=== PATIENT | female | born 1985 | race Caucasian/White ===

== ENCOUNTER 2018-08-15 06:34 | Emergency (ER) | payer MEDICAID ==
[2018-08-15 06:43] VITALS: BP 121/72
[2018-08-15] MEDS ORDERED: predniSONE 20 MG Tab PO ONE ×2 (07:20→07:32)
--- NOTE | 2018-08-15 07:20 | EDM.PDOC ---
ED HPI GENERAL MEDICAL PROBLEM - General Chief Complaint: Allergic Reaction Stated Complaint: ALLERGIC RX TO HAIR DYE Time Seen by Provider: 08/15/18 07:13 Source of Information: Reports: Patient History Limitations: Reports: No Limitations - History of Present Illness INITIAL COMMENTS - FREE TEXT/NARRATIVE: 33-year-old female presents to the ED for evaluation today due to development of a severe contact dermatitis involving her scalp and facial tissues and nape of neck due to development of allergic response to hair dye. She used a hair dye on Thursday, August 13 and within 24 hours started develop severe itching of the scalp which is progressed into significant swelling of the right david-face particularly with closure of the right eye due to soft tissue swelling of the eyelids. She has been using Benadryl 50 mg every 4-6 hours when necessary but his foot is this the itch and the swelling have progressed. She reports she thinks she had a similar type reaction many years ago. She feels no shortness of breath no problems with breathing or swallowing. Rash is confined to the area that was exposed to the hair dye. She does have some bruising and blistering of the scalp. It is oozing serous material due to development of some vesicles. Onset: Gradual Onset Date: 08/14/18 Duration: Day(s):, Getting Worse Location: Reports: Head, Face, Neck (Nape of neck.) Quality: Reports: Burning, Sharp, Stabbing, Other Severity: Severe (Severe pruritus dryness) Improves with: Reports: Medication (Benadryl helps a little bit.) Worsens with: Reports: None Context: Reports: Other (Chemical dermatitis secondary to hair dye.). Denies: Activity, Exercise, Lifting, Sick Contact, Trauma Associated Symptoms: Reports: Rash (Especially facial edema. Erythematous rash nape of neck). Denies: Confusion, Chest Pain, Cough, cough w sputum, Fever/ Chills, Loss of Appetite, Nausea/Vomiting, Shortness of Breath Treatments [employer]: Reports: Other (see below) (Benadryl when necessary) Scalp Pain Score (Numeric/FACES): 3 - Related Data Allergies Allergy/AdvReac Type Severity Reaction Status Date / Time dair dye Allergy Swelling Uncoded 08/15/18 06:47 Home Meds: Home Meds Betamethasone Valerate [Valisone 0.1% Lotion] 60 ml .XX DAILY #2 bottle [Rx] diphenhydrAMINE [Benadryl] 50 mg PO ASDIRECTED PRN 08/15/18 [History] predniSONE [Deltasone] 20 mg PO ASDIRECTED #17 tablet 08/15/18 [Rx] Past Medical History - Past Health History Medical/Surgical History: Denies Medical/Surgical History [employer] History: Reports: Social & Family History - Tobacco Use Smoking Status *Q: Current Every Day Smoker Years of Tobacco use: 10 Packs/Tins Daily: 1 - Recreational Drug Use Recreational Drug Use: Yes Drug Use in Last 12 Months: Yes Recreational Drug Type: Reports: Marijuana/Hashish Recreational Drug Use Frequency: Rarely - Living Situation & Occupation Living situation: Reports: Single Occupation: Employed ED ROS ALLERGIC REACTION - Review of Systems Review Of Systems: See Below (Self-employed) Constitutional: Denies: Fever, Chills, Malaise, Weakness, Fatigue, Decreased Appetite, Weight Loss HEENT: Reports: No Symptoms, Other (Facial swelling). Denies: Eye Discharge, Nosebleed, Rhinitis, Sinus Problem, Throat Pain, Vertigo Respiratory: Reports: No Symptoms Cardiovascular: Reports: No Symptoms Endocrine: Reports: No Symptoms GI/Abdominal: Reports: No Symptoms : Reports: No Symptoms Musculoskeletal: Reports: No Symptoms Skin: Reports: Other (Contact dermatitis involving entire scalp with some vesicles particularly on the vertex of the scalp that are oozing serous material. Rash nape of neck which is erythematous and right pleuritic. Marked edema and swelling of the right david-face and mildly of the left david-face particularly the forehead.) Neurological: Reports: No Symptoms Psychiatric: Reports: No Symptoms Hematologic/Lymphatic: Reports: No Symptoms Immunologic: Reports: No Symptoms ED EXAM GENERAL NO PERIP PULSE - Physical Exam Exam: See Below Exam Limited By: No Limitations General Appearance: Alert, WD/WN, No Apparent Distress, Moderate Distress Eye Exam: Bilateral Eye: Normal Inspection (When we open her right eye there is no edema of the conjunctiva.), Periorbital Changes (She has severe swelling of the right david-face particularly the upper and lower eyelids with closure of the eye. The forehead is also grossly edematous bilaterally. It is not erythematous it is just edematous and swollen.) Ears: Other (Both lobes of her ears are grossly swollen and erythematous with no blister formation at this time.) Throat/Mouth: Normal Inspection, Normal Lips, Normal Teeth, Normal Oropharynx Head: Normocephalic, Facial Swelling (Diffuse swelling of the right david-face and both sides of the forehead.), Other (Right eye is nearly closed due to swelling of both upper and lower eyelids. They scalp hair itself is very erythematous with some vesicles on the vertex of the scalp that are oozing serous material.) Neck: Supple, Non-Tender, Full Range of Motion, Other (Rash nape of neck but range of motion is full.) Respiratory/Chest: No Respiratory Distress, Lungs Clear, Normal Breath Sounds, No Accessory Muscle Use, Prolonged Expiration Cardiovascular: Normal Peripheral Pulses, Regular Rate, Rhythm, No Edema, No Murmur, No Rub Extremities: Normal Inspection, Normal Range of Motion, Non-Tender, No Pedal Edema Neurological: Alert, Oriented, CN II-XII Intact, Normal Cognition Psychiatric: Normal Affect, Normal Mood Skin Exam: Warm, Dry, Other (Diffuse erythematous rash of the entire scalp with some small vesicles on the vertex of the scalp oozing serous material. Spotty macular erythematous rash nape of neck. As described above marked swelling of the entire right david-face with closure of the right eye due to edema of the upper and lower eyelids. The forehead is also boggy and swollen on both sides. Both ears are involved as well with swelling of the earlobes particularly superiorly with erythema and tissue behind the ears is also very erythematous and swollen.) Course - Vital Signs Last Recorded V/S: Last Vital Signs Temp 36.3 C 08/15/18 06:41 Pulse 75 08/15/18 06:41 Resp 16 08/15/18 06:41 BP 121/72 08/15/18 06:41 Pulse Ox 99 08/15/18 06:41 - Orders/Labs/Meds Orders: Active Orders 24 hr Category Date Time Status predniSONE Med 08/15/18 07:32 Once 20 mg PO ONETIME ONE Meds: Medications Discontinued Medications Generic Name Dose Route Start Last Admin Trade Name Freq PRN Reason Stop Dose Admin Prednisone 30 mg 08/15/18 07:20 08/15/18 07:28 Prednisone PO 08/15/18 07:21 30 mg ONETIME ONE Administration - Radiology Interpretation Free Text/Narrative:: 33-year-old female presents to the ED with a severe allergic response or contact dermatitis to hair dye that she used 2 days ago. She essentially developed significant inflammation of the entire scalp with erythema some small vesicle formation and serous drainage from the vertex of the scalp. This is also involved nape of neck with a macular erythematous rash and swelling of both earlobes particularly superiorly and posterior to the ears. There is also marked edema with no erythema of the entire right david-face with closure of her right eye due to swelling of the upper and lower eyelids and facial cheek is swollen as well. Both sides of the forehead are edematous and swollen. There is no airway compromise. No other systemic signs of allergic response. Treatment be prednisone 30 mg by mouth now with 20 mg tablet given to take home to take at [facility]. She lives in [place] and will not be coming back to [place] today and we have very limited drugstore access. She will return tomorrow for prednisone 20 mg twice a day a.m. and p.m. for 6 days and then once in the morning for another 6 days. Also betamethasone scalp lotion to be applied once daily for 3 days in a row to bring the allergic response to the scalp under control. Follow-up if not markedly improved in 72 hours time Departure - Departure Time of Disposition: 07:20 Disposition: Home, Self-Care 01 Condition: Fair Clinical Impression: Contact dermatitis and other eczema due to other chemical products - Discharge Information *PRESCRIPTION DRUG MONITORING PROGRAM REVIEWED*: Not Applicable *COPY OF PRESCRIPTION DRUG MONITORING REPORT IN PATIENT ERNA: Not Applicable Prescriptions: Betamethasone Valerate [Valisone 0.1% Lotion] 60 ml .XX DAILY #2 bottle predniSONE [Deltasone] 20 mg PO ASDIRECTED #17 tablet Instructions: Contact Dermatitis, [id number] Referrals: Flaquita Martins PA-C [Primary Care Provider] - Forms: ED Department Discharge Additional Instructions: Evaluation the emergency room today in regards to development of a severe contact dermatitis to chemical ingredients in hair dye. You used a product to dye her hair 2 days ago and this is resulted in what we call a contact dermatitis to the entire scalp with subsequent swelling of the face particularly the right side and the soft tissues of the eyelids. Treatment is both oral steroids initial dose of prednisone given in the ED was 30 mg and you are to take 20 mg with supper and then twice daily breakfast and supper for 6 days. Then once daily in the morning for another 6 days to bring this reaction under control. I've also written a prescription for betamethasone lotion that can be rubbed into the scalp at bedtime for 3 nights in a row to help further bring the allergic response under control. You can continue to use Benadryl 50 mg every 6 hours as needed for itching. Expect marked improvement over the next 36-48 hours with near returned to normal especially in regards to facial swelling etc. If not follow-up with personal care physician or return to the ED - My Orders Last 24 Hours: My Active Orders 08/15/18 07:32 predniSONE 20 mg PO ONETIME ONE - Assessment/Plan Last 24 Hours: My Active Orders 08/15/18 07:32 predniSONE 20 mg PO ONETIME ONE
== END 2018-08-15 07:40 | disposition home or self-care (01) ==
LOC: JD.ED 06:34
DX: T49.8X1A Poisoning by other topical agents, accidental (unintentional), initial encounter (principal); L23.2 Allergic contact dermatitis due to cosmetics; F17.210 Nicotine dependence, cigarettes, uncomplicated; Z79.899 Other long term (current) drug therapy
CPT/HCPCS: 99283; A9270

== ENCOUNTER 2024-06-19 18:54 | Emergency (ER) | payer MEDICAID ==
[2024-06-19] MEDS ORDERED: Sodium Chloride 0.9% 10 ML Syringe FLUSH PRN (19:35)
[2024-06-19 20:09] LABS: BASOPHILS ABSOLUTE AUTO 0.1 K/mm3 (0.0-0.2); BASOPHILS PERCENT AUTO 0.5 % (0.0-1.0); EOSINOPHILS ABSOLUTE AUTO 0.2 K/mm3 (0.0-0.4); EOSINOPHILS PERCENT AUTO 0.9 % (0.0-6.0); HEMATOCRIT 42.1 % (37.0-47.0); IMMATURE GRAN ABSOLUTE AUTO 0.05 K/mm3 (0.00-0.05); IMMATURE GRAN PERCENT AUTO 0.3 % (0.0-0.4); LYMPHOCYTES ABSOLUTE AUTO 3.8 K/mm3 (1.0-4.8); LYMPHOCYTES PERCENT AUTO 22.5 % (24.0-44.0); MEAN CORPUSCULAR HEMOGLOBIN 30.8 pg (28.0-32.0); MEAN CORPUSCULAR HGB CONC 33.3 g/dl (32.0-36.0); MEAN CORPUSCULAR VOLUME 92.7 fl (83.0-99.0); MEAN PLATELET VOLUME 9.1 fl (9.4-12.3); MONOCYTES PERCENT AUTO 5.9 % (0.0-8.0); NEUTROPHILS ABSOLUTE AUTO 11.9 K/mm3 (1.8-7.7); NEUTROPHILS PERCENT AUTO 69.9 % (41.0-71.0); PLATELET COUNT,PLT 335 K/mm3 (150-400); RED BLOOD CELL COUNT 4.54 M/mm3 (4.10-5.30); WHITE BLOOD CELL COUNT,WBC 17.04 K/mm3 (3.9-11.3)
[2024-06-19 20:30] LABS: A/G RATIO 0.9 (1-2); ALBUMIN 3.3 g/dl (3.4-5.0); ANION GAP 14.4 (5-15); BILIRUBIN TOTAL 0.2 mg/dL (0.2-1.0); BUN/CREATININE RATIO 12.5 (14-18); CALCIUM 8.4 mg/dL (8.5-10.1); CREATININE 0.8 mg/dL (0.55-1.02); EST CRCL DRUG DOSING (CG) 77.33 mL/min; POTASSIUM,K 3.4 mEq/L (3.5-5.1); PROTEIN TOTAL,TP 7.1 g/dl (6.4-8.2)
[2024-06-19 20:58] LABS: APPEARANCE,URINE CLEAR (Clear); BILIRUBIN,URINE NEGATIVE (Negative); COLOR,URINE YELLOW (Yellow); GLUCOSE,URINE NEGATIVE (Negative); KETONES,URINE NEGATIVE (Negative); LEUKOCYTE ESTERASE,URINE NEGATIVE (Negative); NITRITE,URINE NEGATIVE (Negative); OCCULT BLOOD,URINE NEGATIVE (Negative); PROTEIN,URINE NEGATIVE (Negative); UROBILINOGEN,URINE 0.2 (0.2-1.0)
[2024-06-19] MEDS: Sodium Chloride 0.9% 1,000 ML IV STA (21:18)
[2024-06-19] MEDS: Ketorolac 30 MG/ML SDV IVPUSH ONE (21:21)
[2024-06-19] MEDS: Sodium Chloride 0.9% 10 ML Syringe FLUSH PRN (21:58)
[2024-06-19] MEDS: Iopamidol 612 MG/ML 100 ML Bottle IVPUSH ONE (21:58)
[2024-06-20 00:47] LABS: C. TRACHOMATIS BY PCR NOT DETECTED; N. GONORRHOEAE BY PCR NOT DETECTED
[2024-06-20 03:29] VITALS: BP 135/93; PULSE 72
== END 2024-06-20 03:29 | disposition home or self-care (01) ==
LOC: JD.ED 18:54
DX: N83.201 Unspecified ovarian cyst, right side (principal); K59.01 Slow transit constipation; Z91.048 Other nonmedicinal substance allergy status; Z79.899 Other long term (current) drug therapy
CPT/HCPCS: 36415; 74177; 74177-26; 76830; 76830-26; 80053; 81003; 81025; 81515; 85025; 86140; 87491; 87591; 96361; 96374; 99284; 99284-25; J1885; J7030; Q9967